=== PATIENT | male | born 1980 | race Caucasian/White ===

== ENCOUNTER 2021-06-10 17:42 | Emergency (ER) | payer OTHER ==
[~2021-06-10] VITALS: Ht 170.2 cm; Wt 80.7 kg
[~2021-06-10 17:42] MED LIST: NORCO 5-325 TA1 EACH PO; SOMA350 MG PO; VALIUM5 MG PO
--- OUTSIDE RECORDS SUMMARY | 2021-06-10 17:44 | XMS ---
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 Ping has no Care Guidelines for this patient. Nini VISIT COUNT (12 MO.) 1 DANIEL Osuna TOTAL 1 NOTE: Visits indicate total known visits. ED/UCC VISIT TRACKING (12 MO.) 06/10/2021 17:43 DANIEL Dominguez OR TYPE: Emergency COMPLAINT: - POST OP PROBLEM INPATIENT VISIT TRACKING (12 MO.) No inpatient visits to display in this time frame [email or web address]
[2021-06-10] MEDS ORDERED: CEPHALEXIN500 MG (17:58)
[2021-06-10] MEDS ORDERED: LACTULOSE10 GM/151 PO (17:58)
[2021-06-10] MEDS ORDERED: OXYCODONE HCL5 MG PO (17:58)
[2021-06-10] MEDS ORDERED: METHOCARBAMOL750 MG PO (17:58)
[2021-06-10] MEDS ORDERED: BACTRIM DS TAB1 EACH PO (21:48)
[2021-06-10] MEDS ORDERED: PROMETHAZINE HC25 M1 PO (21:48)
== END 2021-06-10 22:00 | disposition home or self-care (01) ==
LOC: ED 17:42
DX: K91.89 Other postprocedural complications and disorders of digestive system (principal); K56.7 Ileus, unspecified; D72.829 Elevated white blood cell count, unspecified; Z79.899 Other long term (current) drug therapy
CPT/HCPCS: 70491; 74177; 80053; 81001; 83690; 83735; 85025; 99284-25; J2270; J2405; J2765; J7030; Q9967